=== PATIENT | female | born 1950 | race Caucasian/White ===

== ENCOUNTER 2016-08-04 14:33 | Emergency (ER) | payer MEDICARE, MEDICAID ==
[~2016-08-04] VITALS: Ht 172.7 cm; Wt 95.3 kg
[2016-08-04] MEDS ORDERED: ACETAMINOPHEN 325 MG TAB PO ONE (16:15)
--- NOTE | 2016-08-04 16:54 | REP ---
CT MAXILLOFACIAL WITHOUT CONTRAST: 08/04/2016: Clinical history: Blunt trauma to the right malar region and orbit. Evaluate for fracture or other. Technique: Soft tissue and bone window axial images with coronal and sagittal bone reconstructions provided. Findings: Nasal septum is slightly deviated towards the right. Nasal bones and the nasal spine of the maxilla is intact. Zygomatic arches are intact. Orbital floors were unremarkable. Medial and lateral orbital florence intact. Visualized portions of the mandible and maxilla are without fracture or destructive lesion. The patient is edentulous. I see no definite facial fracture. Mild swelling over the right supraorbital ridge. No other significant finding. Bilateral parotid and submandibular glands intact. Upper cervical levels and craniocervical junction intact. Impression: 1. Some mild soft-tissue swelling right supraorbital region. No facial swelling or hematoma otherwise and the orbits and other bony facial structures intact. 2. Sinuses and mastoids are without opacification or air-fluid levels. 3. Visualized mandible and maxilla are edentulous and without fracture. No other significant finding. Signed by Nahun Ryan MD 08/04/2016 05:29 P
[2016-08-04 17:43] VITALS: BP 160/75
== END 2016-08-04 17:47 | disposition home or self-care (01) ==
LOC: M ED 15:45
DX: S00.83XA Contusion of other part of head, initial encounter (principal); W22.09XA Striking against other stationary object, initial encounter; Y92.512 Supermarket, store or market as the place of occurrence of the external cause; Y93.89 Activity, other specified; Y99.2 Volunteer activity